=== PATIENT | male | born 1935 | race Hispanic/Latino ===

== ENCOUNTER 2018-07-07 09:48 | Emergency (ER) | payer MEDICARE | END 2018-07-07 12:09 | disposition home or self-care (01) | LOC: EDH 09:48 | DX: S63.592A Other specified sprain of left wrist, initial encounter (principal); E11.9 Type 2 diabetes mellitus without complications; X50.0XXA Overexertion from strenuous movement or load, initial encounter; Y93.89 Activity, other specified; Y92.89 Other specified places as the place of occurrence of the external cause; Y99.8 Other external cause status | CPT/HCPCS: 29125; 73110 ==

== ENCOUNTER → 2019-10-31 | Outpatient (CLI) | payer MEDICARE | END | disposition home or self-care (01) | LOC: SHCH 13:04 | PROVIDERS: ATTEND Internal Medicine Cardiovascular Disease | DX: I35.0 Nonrheumatic aortic (valve) stenosis (principal) | CPT/HCPCS: 93306 ==

== ENCOUNTER → 2021-06-24 | Outpatient (CLI) | payer OTHER, MEDICARE | END | disposition home or self-care (01) | LOC: SHCH 09:57 | PROVIDERS: ATTEND Internal Medicine Cardiovascular Disease | DX: I87.2 Venous insufficiency (chronic) (peripheral) (principal) | CPT/HCPCS: 93970 ==

== ENCOUNTER → 2023-09-13 | Outpatient (CLI) | payer OTHER, MEDICARE ==
[~2023-09-13] MED LIST: ASPI-1443 PO; ATOR40TA69 PO; DAPA10TA PO; DONE10TA43 PO; LOSA50TA64 PO; MEMA10TA21 PO; METF-446 PO; METO25TA6 PO; SEMA3TAB4 PO; TICA90TA PO
== END | disposition home or self-care (01) ==
LOC: SHCH 07:57
PROVIDERS: ATTEND Internal Medicine Cardiovascular Disease
DX: I35.0 Nonrheumatic aortic (valve) stenosis (principal)
CPT/HCPCS: 93306

== ENCOUNTER 2024-01-25 13:44 | Emergency (ER) | payer OTHER, MEDICARE ==
[~2024-01-25] VITALS: Ht 157.5 cm; Wt 56.7 kg
--- NOTE | 2024-01-25 13:50 | ERN ---
ED Note History of Present Illness Stated Complaint: FLU SYMPTOMS Chief Complaint: Flu Symptoms Time Seen by MD: 13:45 Dictation: PATIENT IS AN 88-YEAR-OLD MALE COMING IN TODAY WITH COMPLAINTS OF BODY ACHES, LOW-GRADE FEVER MILD SORE THROAT WITH CLEAR RUNNY NOSE AND DRY COUGH FOR TWO DAYS. NO NAUSEA VOMITING NO LOSS OF TASTE OR SMELL NO CHEST PAIN. PATIENT WAS SEEN BY HIS PRIMARY CARE DOCTOR YESTERDAY AND WAS JUST GIVEN REFILLS FOR HIS MEDICATIONS AND TOLD EVERYTHING WAS FINE. PATIENT WOULD LIKE A 2ND OPINION Allergies: Coded Allergies: No Known Drug Allergies (Unverified Allergy, Unknown, 07/07/18) Home Meds Active Scripts Azithromycin (Zithromax) 500 Mg Tablet, 1 TAB PO DAILY for 5 Days, #5 TAB 0 Refills Prov:JENNIFER JIMENEZ INFERTILITY MEDICAL ASSISTANT 01/25/24 Benzonatate (Tessalon Perles) 100 Mg Cap, 100 MG PO TID for cough, #30 CAP 0 Refills Prov:JENNIFER JIMENEZ INFERTILITY MEDICAL ASSISTANT 01/25/24 Reported Medications Metformin HCl (Metformin HCl) 1,000 Mg Tablet, 1000 MG PO BIDAC, TAB 12/22/22 Aspirin (Aspirin EC) 81 Mg Tablet.dr, 81 MG PO DAILY, TAB 12/22/22 Ticagrelor (Brilinta) 90 Mg Tablet, 90 MG PO BID, TAB 12/22/22 Atorvastatin Calcium (LIPITOR) 40 Mg Tablet, 40 MG PO HS, TAB 12/22/22 Losartan Potassium (Losartan Potassium) 50 Mg Tablet, 50 MG PO DAILY, TAB 12/22/22 Metoprolol Tartrate (Metoprolol Tartrate) 25 Mg Tablet, 25 MG PO BID, TAB 12/22/22 Memantine HCl (Memantine HCl) 10 Mg Tablet, 10 MG PO BID, TAB 12/22/22 Semaglutide (Rybelsus) 3 Mg Tablet, 3 MG PO ACBKFST, TAB 12/22/22 Dapagliflozin Propanediol (Farxiga) 10 Mg Tablet, 10 MG PO DAILY, TAB 12/22/22 Donepezil HCl (Donepezil HCl) 10 Mg Tablet, 10 MG PO DAILY, TAB 12/22/22 Past Medical History Past Medical History: Diabetes-Type II, High Cholesterol, Hypertension Surgical History: Unknown Surgical History Other: HEAD SURGERY RN Note Reviewed/Agreed w/PFSH: Yes Review of System Dictation CONSTITUTIONAL: NEGATIVE EXCEPT FOR HPI FEVER HEAD/FACE: NEGATIVE EXCEPT FOR HPI EENT: NEGATIVE EXCEPT FOR HPI CLEAR RUNNY RESPIRATORY: NEGATIVE EXCEPT FOR HPI NOSE MILD SORE THROAT DRY COUGH GASTROINTESTINAL/ABDOMINAL: NEGATIVE EXCEPT FOR HPI GENITOURINARY: NEGATIVE EXCEPT FOR HPI MUSCULOSKELETAL: NEGATIVE EXCEPT FOR HPI INTEGUMENTARY: NEGATIVE EXCEPT FOR HPI NEUROLOGICAL/PSYCH: NEGATIVE EXCEPT FOR HPI HEMATOLOGIC/LYMPHATIC: NEGATIVE EXCEPT FOR HPI ALL SYSTEMS NEGATIVE, EXCEPT NOTED ABOVE. 13 POINT REVIEW OF SYSTEMS ASSESSED AND ALL NEGATIVE EXCEPT FOR ABOVE. Initial Vital Sign VS Vital Signs Date Time Temp Pulse Resp B/P (MAP) Pulse Ox O2 Delivery O2 Flow Rate FiO2 01/25/24 13:46 99.3 121 20 133/90 96 Room Air 0 01/25/24 14:15 21 Physical Exam Dictation VITAL SIGNS REVIEWED GENERAL APPEARANCE: ALERT, ORIENTED X 3, MILD ACUTE DISTRESS, WELL DEVELOPED, NOURISHED. HEAD AND FACE: NON-TRAUMATIC. EYES: PERRL, PINK CONJUNCTIVAS, EYELID NO TRAUMA, ANTERIOR CHAMBER WITH ARCUS SENILIS. EARS: PINNAS INTACT AND NO SIGNS OF TRAUMA OR ERYTHEMA EAR CANALS CLEAR AND NO DISCHARGE TM NO ERYTHEMA NOSE: NO DISCHARGE, NO BLEEDING. OROPHARYNX: MOUTH NORMAL, TONGUE PINK, PHARYNX CLEAR, MILD PHARYNGEAL ERYTHEMA, TONSILS NO EXUDATES, NO ABSCESSES NOTED, MUCOUS MEMBRANE MOIST NECK: SUPPLE, NON-TENDER, NO THYROMEGALY, NO MASSES, NO JVD, NO BRUITS BREAST:DEFERRED CHEST:NO TENDERNESS, NO CREPITUS, NO PARADOXICAL MOVEMENT, NO RETRACTIONS LUNGS:CLEAR, WELL-VENTILATED, SYMMETRIC, NO RALES, NO WHEEZING, NO RHONCHI, NO STRIDOR, GOOD BREATH SOUNDS BILATERALLY HEART: REGULAR RATE, REGULAR RHYTHM, NO MURMUR, NO GALLOPS VASCULAR: NO PERIPHERAL EDEMA, ABDOMEN: SOFT, POSITIVE BOWEL SOUNDS, NONDISTENDED, NO GUARDING, NONTENDER, NO REBOUND, NO MASSES NO HEPATOMEGALY, NO SPLENOMEGALY, NO DUFFY'S SIGN, NO HERNIAS. RECTAL: DEFERRED GENITAL: DEFERRED NEUROLOGICAL: NORMAL SPEECH, MOTOR FUNCTION INTACT, SENSORY FUNCTION INTACT MUSCULOSKELETAL: NECK NONTENDER, FULL RANGE OF MOTION, BACK NONTENDER, FULL RANGE OF MOTION, EXTREMITIES: NONTENDER, FULL RANGE OF MOTION SKIN: COLOR PINK, DRY, NO TURGOR, NO RASH, NO LACERATIONS, NO ABRASIONS, NO CONTUSIONS. LYMPHATIC: DEFERRED Results (Laboratory/Radiology) Laboratory/Radiology Laboratory Tests Test 01/25/24 13:55 Influenza Type A Antigen Negative For Type A Influenza Type B Antigen Negative For Type B SARS-CoV-2 Antigen (Rapid) PRESUMPTIVE NEGATIVE Group A Streptococcus Rapid negative (NEGATIVE) FIFTEEN 15, CHEST X-RAY NEGATIVE Labs Reviewed?: Yes ED Course ED Course Orders Procedure Category Date Status Time Covid19 (Sars Antigen LAB 01/25/24 Complete Rapid) 13:45 Influenza Type A & B, LAB 01/25/24 Complete Rapid 13:45 Rapid (Group A Strep) LAB 01/25/24 Complete 13:45 Chest 1vw RAD 01/25/24 Resulted 13:45 Acetaminophen 500mg PHA 01/25/24 Complete Tab (Tylenol 500mg T 14:00 Current Medications Medications (Trade) Dose Ordered Sig/Nicholas Route PRN Reason Start Time Stop Time Status Last Admin Dose Admin Acetaminophen (TYLenol 500MG TAB) 1,000 mg ONCE ONCE PO 01/25/24 14:00 01/25/24 14:01 DC 01/25/24 14:15 Vital Signs Date Time Temp Pulse Resp B/P (MAP) Pulse Ox O2 Delivery O2 Flow Rate FiO2 01/25/24 15:40 99.3 78 20 143/89 98 Room Air* 0 21 01/25/24 14:15 99.9 84 20 135/62 96 Room Air* 0 21 01/25/24 14:15 99.9 01/25/24 13:46 99.3 121 20 133/90 96 Room Air 0 Medical Decision Making [facility] MEDICAL DISCHARGE MAKING BASED ON SWABS FOR FLU COVID AND STREP AND CHEST X-RAY. CHEST X-RAY NEGATIVE SWABS NEGATIVE PATIENT DIAGNOSED WITH URI WITH COUGH SYMPTOMS WE WILL BE TREATED DX & DISP Disposition: Discharge Departure Impression: Primary Impression: Viral URI with cough Condition: Stable Scripts Azithromycin (Zithromax) 500 Mg Tablet 1 TAB PO DAILY for 5 Days, #5 TAB 0 Refills Prov: JENNIFER JIMENEZ INFERTILITY MEDICAL ASSISTANT 01/25/24 Benzonatate (Tessalon Perles) 100 Mg Cap 100 MG PO TID for cough, #30 CAP 0 Refills Prov: JENNIFER JIMENEZ INFERTILITY MEDICAL ASSISTANT 01/25/24 Additional Instructions: FOLLOW-UP WITH PRIMARY CARE PROVIDER IN 1 TO 2 DAYS. TAKE MEDICATIONS DIRECTED HERE IN THE EMERGENCY ROOM. OKAY TO CONTINUE HOME MEDICATIONS UNLESS OTHERWISE DISCUSSED DURING YOUR VISIT IN THE EMERGENCY ROOM TODAY. RETURN TO YOUR NEAREST EMERGENCY ROOM IF SYMPTOMS WORSEN OR IF THERE IS NO IMPROVEMENT. CALL 911 IF YOU NEED IMMEDIATE ASSISTANCE. TAKE TYLENOL OR MOTRIN [id number] NEEDED AND IF NO CONTRAINDICATIONS ARE PRESENT. INCREASE ORAL HYDRATION. A WOUND CULTURE OR URINE CULTURE WAS ORDERED HERE IN THE EMERGENCY ROOM DEPARTMENT PLEASE FOLLOW-UP WITH PRIMARY CARE PROVIDER AND ADVISE THEM TO GET REPEAT PORTS FROM OUR FACILITY. IF YOU HAD ANY LATESHA WRAP/SPLINTS T HAT WERE APPLIED HERE, PLEASE DO NOT REMOVE THEM UNTIL YOU SEE YOUR PRIMARY CARE OR SPECIALTY. TAKE TESSALON DIRECTED FOR COUGH, INCREASE YOUR WATER INTAKE. , SEE YOUR PRIMARY CARE DOCTOR FOR FOLLOW UP. Referrals: RANDY BAKER MD (PCP) Time of Disposition: 15:16 I have reviewed the case, and I agree with, Diagnosis and Plan JENNIFER JIMENEZ NP Jan 25, 2024 13:50 LETY TELLO DO Jan 25, 2024 18:39
[2024-01-25] MEDS: acetaMINOPHEN 500 MG TABLET PO ONE (14:15)
[2024-01-25 14:29] LABS: RAPID GROUP A STREP negative (NEGATIVE)
[2024-01-25 14:39] LABS: COVID19 (SARS ANTIGEN RAPID) PRESUMPTIVE NEGATIVE (NEGATIVE); INFLUENZA TYPE A Negative For Type A (NEGATIVE); INFLUENZA TYPE B Negative For Type B (NEGATIVE)
[2024-01-25] MEDS ORDERED: BENZ-39 PO (15:17)
--- NOTE | 2024-01-25 15:34 | HMCIMG ---
CHEST 1VW REASON: SOB COMPARISON: 12/25/2022 FINDINGS: Single view of the chest was obtained. Lungs are clear. Heart size is normal. There is no pulmonary vascular congestion. Mediastinum and bony thorax appear unremarkable. IMPRESSION: 1. Normal single view chest x-ray.
[2024-01-25 15:35] VITALS: TEMP 99.9
[2024-01-25] MEDS ORDERED: AZIT500T PO (15:38)
[2024-01-25 15:40] VITALS: BP 143/89; PULSE 78; RESP 20; TEMP 99.4; O2SAT 98
--- NOTE | 2024-01-28 11:15 | EKG ---
[facility] Test Date: 2024-01-25 Test Time: 13:53:50 Pat Name: SOCORRO PEMBERTON Department: ED Room: Gender: M Convention Manager: [id number] : 1935 Requested By: LETY TELLO Order Number: [id number] Reading MD: Ignacio Banks Measurements Intervals [place] Rate: 107 P: 76 MD: 172 QRS: 32 QRSD: 82 T: 67 QT: 352 QTc: 470 Interpretive Statements Sinus tachycardia Low voltage, extremity leads Compared to ECG 12/21/2022 20:07:01 Low QRS voltage now present Sinus rhythm no longer present ST (T wave) deviation no longer present Electronically Signed On 01-28-2024 20:58:01 DIP UNIT OPERATOR by Ignacio Banks Please click the below link to view image of tracing.
== END 2024-01-25 16:01 | disposition home or self-care (01) ==
LOC: EDH 13:44
DX: J06.9 Acute upper respiratory infection, unspecified (principal); B97.89 Other viral agents as the cause of diseases classified elsewhere; E11.9 Type 2 diabetes mellitus without complications; E78.00 Pure hypercholesterolemia, unspecified; I10 Essential (primary) hypertension; Z20.822 Contact with and (suspected) exposure to COVID-19; Z79.02 Long term (current) use of antithrombotics/antiplatelets; Z79.82 Long term (current) use of aspirin; Z79.84 Long term (current) use of oral hypoglycemic drugs; Z79.899 Other long term (current) drug therapy
CPT/HCPCS: 71045; 87426; 87804; 87880; 93005; 99284; 99285

== ENCOUNTER 2024-11-14 05:32 | Emergency (ER) | payer OTHER, MEDICAID ==
[~2024-11-14] VITALS: Ht 167.6 cm; Wt 59.0 kg
[~2024-11-14 05:32] MED LIST changes: -DAPA10TA PO; -LOSA50TA64 PO; +SITA25TA5 PO
--- NOTE | 2024-11-14 05:59 | ERN ---
General Chief Complaint: Hypoglycemia Stated Complaint: UNRESPONSIVE AT CORRECTION Time Seen by MD: 05:37 Source: EMS History of Present Illness Initial Comments 89-year-old male with a dementia and diabetes at a [facility] was found to have a decreased mental status and was brought to the emergency room. Sequence of events prior to arrival to the ED: Patient's blood glucose was noted to be 250 at the [facility] and he was given 6 units of regular insulin. He had not eaten dinner. Later the patient was found to be unresponsive in his bed. And production hardener were called. At 5:00 a.m., just prior to the production hardener arriving patient's blood glucose was normal. Once the production hardener arrived and measured his blood glucose it was 27. Patient received glucose in transit and on arrival here his glucose is 70 and the patient is more alert and awake. He knows his name he knows he was in the ambulance. When we asked about pain he stated that he is having chest pain. Timing/Duration: 4-6 hours Allergies: Coded Allergies: No Known Drug Allergies (Unverified Allergy, Unknown, 07/07/18) Home Meds Reported Medications Ticagrelor (Brilinta) 90 Mg Tablet, 1 TAB PO BID for 30 Days, #60 TAB 0 Refills 10/24/24 Sitagliptin Phosphate (Januvia) 25 Mg Tablet, 1 TAB PO DAILY 10/24/24 Metformin HCl (Metformin HCl) 1,000 Mg Tablet, 1000 MG PO BIDAC, TAB 12/22/22 Aspirin (Aspirin EC) 81 Mg Tablet.dr, 81 MG PO DAILY, TAB 12/22/22 Atorvastatin Calcium (LIPITOR) 40 Mg Tablet, 40 MG PO HS, TAB 12/22/22 Metoprolol Tartrate (Metoprolol Tartrate) 25 Mg Tablet, 25 MG PO BID, TAB 12/22/22 Memantine HCl (Memantine HCl) 10 Mg Tablet, 10 MG PO BID, TAB 12/22/22 Semaglutide (Rybelsus) 3 Mg Tablet, 3 MG PO ACBKFST, TAB 12/22/22 Donepezil HCl (Donepezil HCl) 10 Mg Tablet, 10 MG PO DAILY, TAB 12/22/22 Past Medical History Past Medical History: Hypertension, Other Medical History Other: DEMENTIA Past Surgical History: None Surgical History Other: HEAD STENTS ROS Dictation Unable to obtain a good review of systems given patient's dementia. Physical Exam General Appearance: (+) no apparent distress Orientation: (+) alert Head/Face Trauma: No Eye: bilateral eye normal inspection, bilateral eye PERRL, bilateral eye EOMI Ear, Nose, Throat: (+) hearing grossly normal, (+) normal ENT inspection, (+) moist mucous membraine Neck: (+) normal inspection, (+) supple, (+) full range of motion Respiratory: (+) chest non-tender, (+) lungs clear, (+) well ventilated Heart: (+) regular, (+) no gallop Vascular: (+) no edema, (+) normal peripheral pulse Gastrointestinal: (+) soft, (+) non-tender, (+) bowel sound present Results Laboratory and Microbiology Lab and Micro Result Laboratory Tests Test 11/14/24 05:41 11/14/24 05:45 Whole Blood Glucose 78 MG/DL (70-110) White Blood Count 7.8 K/uL (4.8-10.8) Red Blood Count 3.26 MIL/uL (4.50-6.20) L Hemoglobin 8.7 g/dL (14.0-18.0) L Hematocrit 27.2 % (42-54) L Mean Corpuscular Volume 83.4 fL (79-99) Mean Corpuscular Hemoglobin 26.7 pg (27.0-33.0) L Mean Corpuscular Hemoglobin Concent 32.0 g/dL (32.0-36.0) Red Cell Distribution Width 16.0 % (11.0-15.5) H Platelet Count 385 K/uL (130-400) Mean Platelet Volume 11.0 fL (7.5-10.5) H Immature Granulocyte % (Auto) 0.9 % (0-1) Neutrophils (%) (Auto) 86.1 % (40.0-77.0) H Lymphocytes (%) (Auto) 6.4 % (21.0-51.0) L Monocytes (%) (Auto) 5.9 % (3.0-13.0) Eosinophils (%) (Auto) 0.3 % (0.0-8.0) Basophils (%) (Auto) 0.4 % (0.0-5.0) Neutrophils # (Auto) 6.8 K/uL (1.8-7.7) Lymphocytes # (Auto) 0.5 K/uL (1.0-4.8) L Monocytes # (Auto) 0.5 K/uL (0.1-1.0) Eosinophils # (Auto) 0.02 K/uL (0.00-0.70) Basophils # (Auto) 0.03 K/uL (0.00-0.20) Absolute Immature Granulocyte (auto 0.07 K/uL (0-1) Nucleated Red Blood Cells 0.3 % (0.0-0.19) H White Cell Morphology Comment CONSISTENT W/DIFF Sodium Level 147 mmol/L (136-145) H Potassium Level 2.7 mmol/L (3.5-5.1) *L Chloride Level 111 mmol/L (101-111) Carbon Dioxide Level 27 mmol/L (21-32) Blood Urea Nitrogen 18 mg/dL (7-18) Creatinine 1.2 mg/dL (0.5-1.3) Glomerular Filtration Rate Calc 58 mL/min (>90) Random Glucose 145 mg/dL (70-105) H Total Calcium 7.8 mg/dL (8.5-10.1) L Troponin I High Sensitivity 71 ng/L (4-75) MDM MDM: Differential diagnosis: Hypoglycemia, infection, insulin overdose, Rationale: Tests considered and ordered secondary to shared decision making include: Previous outside records reviewed: Old ER visits. Risk of complication and/or morbidity or mortality of patient management: None Medications-Per medication reconciliation Need for hospitalization: Patient does meet criteria for hospitalization. Need for emergency major/minor surgery: No There are no social concerns with this patient. Prescription drug management Prescriptions will include symptomatic care Patient's prior external medical records from other ER visits were reviewed by me as indicated. Prior testing and results from previous visits were reviewed. Prior tests were taken into account with medical decision making and resource utilization, independent historian/historians were used to obtain complete medical history. I independently interpreted the test that were performed, results were reviewed by me and considered findings on radiology if ordered. Patient's laboratory analysis shows a normal white blood cell count with moderate anemia. Chemistry panel shows possible dehydration with sodium of 147 and a chloride of 112. Patient's potassium was low at 2.7 I am giving him 50 mEq of potassium bicarb. Patient's glucose was high, but not enough for insulin dosing. Patient's troponin is negative patient's EKG shows no ischemic changes. There were nonspecific T-wave abnormalities in the lateral leads but these were also present on prior EKGs. Patient's daughter is here and would like to take the patient to her house; however, I think patient is oxygen needs and physical therapy needs preclude the patient from being discharged to his daughter's. We will watch the patient here for another hour to make sure his glucose is stable and discharge him back to the nursing facility. We are also giving him some fruit juice to drink. ED Course Orders Procedure Category Date Status Time 12 Lead Ekg Tracing- EKG 11/14/24 Complete Technical 05:49 Troponin I High LAB 11/14/24 Complete Sensitivity 05:49 Basic Metabolic Panel LAB 11/14/24 Complete 05:49 Cbc With Differential LAB 11/14/24 Complete 05:49 D5w-1/2 Ns/20meq Kcl PHA 11/14/24 In Process (D5w-1/2 Ns/20meq K 06:30 Potassium Bicarb/Cit PHA 11/14/24 Complete Ac 25meq (K-Lyte Ta 06:30 Current Medications Medications (Trade) Dose Ordered Sig/Nicholas Route PRN Reason Start Time Stop Time Status Last Admin Dose Admin Potassium Bicarbonate (K-Lyte Tablet Eff 25 Meq Tablet.eff) 50 meq ONCE ONCE PO 11/14/24 06:30 11/14/24 06:31 DC 11/14/24 06:26 Potassium Chloride/Dextrose/ Sod Cl 1,000 ml @ 200 mls/hr Q5H IV 11/14/24 06:30 11/14/24 11:29 11/14/24 06:14 Vital Signs Date Time Temp Pulse Resp B/P (MAP) Pulse Ox O2 Delivery O2 Flow Rate FiO2 11/14/24 06:42 84 11 134/65 97 Nasal Cannula* 2 28 11/14/24 05:48 97.5 83 14 121/63 97 Nasal Cannula* 2 28 11/14/24 05:34 96.8 97 20 118/60 99 Room Air 0 DX & DISP Disposition: Discharge Departure Impression: Primary Impression: Hypoglycemia Additional Impressions: Dementia, Hypokalemia Condition: Stable Additional Instructions: You came to us with a low blood glucose and we have given you sugar and fluids to correct this. You had concerns about chest pain but your EKG was normal and your troponins were normal. We will discharge you back to your facility with plans to discharge you to your daughter's house in the near future. Referrals: RANDY BAKER MD (PCP) GUDELIA COHEN MD Nov 14, 2024 05:59
[2024-11-14 06:00] LABS: IMMATURE GRANULOCYTE ABSOLUTE 0.07 K/uL (0-1); NUCLEATED RED BLOOD CELLS 0.3 % (0.0-0.19); PLATELET COUNT (AUTO) 385 K/uL (130-400); RED BLOOD CELL COUNT(AUTO) 3.26 MIL/uL (4.50-6.20); RED CELL DISTRIBUTION WIDTH 16.0 % (11.0-15.5); WHITE BLOOD COUNT (AUTO) 7.8 K/uL (4.8-10.8)
[2024-11-14 06:09] LABS: CREATININE 1.2 mg/dL (0.5-1.3); GLOMERULAR FILTR. RATE CALC 58.0 mL/min (>90); GLUCOSE,RANDOM 145.0 mg/dL (70-105); SODIUM SERUM 147.0 mmol/L (136-145); UREA NITROGEN, BLOOD 18.0 mg/dL (7-18)
[2024-11-14 06:13] LABS: WBC MORPHOLOGY CONSISTENT W/DIFF
[2024-11-14] MEDS: D5W-1/2 NS/20MEQ KCL 1,000 ML IV SCH (06:14)
--- NOTE | 2024-11-14 06:49 | EKG ---
[facility] Test Date: 2024-11-14 Test Time: 05:54:19 Pat Name: SOCORRO PEMBERTON Department: ED Room: Gender: M Bar Manager: [facility] : 1935 Requested By: GUDELIA COHEN Order Number: [id number] Reading MD: Bennie Maher Measurements Intervals [place] Rate: 82 P: 50 [place]: 172 QRS: -17 QRSD: 95 T: 170 QT: 440 QTc: Interpretive Statements Sinus rhythm Probable left atrial enlargement Inferior infarct, old Nonspecific T abnormalities, anterolateral leads Electronically Signed On 11-14-2024 10:57:32 CDT by Bennie Maher Please click the below link to view image of tracing.
--- NOTE | 2024-11-14 07:00 | NUR ---
REPORT GIVEN TO LILLY SCOTT AT THIS TIME
--- NOTE | 2024-11-14 07:10 | NUR ---
PT IS ALERT AND ORIENTED AT THIS TIME WITH A BLOOD GLUCOSE OF 88
--- NOTE | 2024-11-14 12:05 | NUR ---
REPORT GIVEN TO [facility] NURSE FRANCINE THEY WILL BE SENDING A SHUTTLE
[2024-11-14 12:42] VITALS: BP 93/53; PULSE 97; RESP 18; TEMP 98.4; O2SAT 100
--- NOTE | 2024-11-14 12:50 | NUR ---
PT BEING TRANSPORTED BY [facility].
== END 2024-11-14 12:59 ==
LOC: EDH 05:32
DX: E11.649 Type 2 diabetes mellitus with hypoglycemia without coma (principal); F03.90 Unspecified dementia, unspecified severity, without behavioral disturbance, psychotic disturbance, mood disturbance, and anxiety; E87.6 Hypokalemia; I10 Essential (primary) hypertension; Z79.82 Long term (current) use of aspirin; Z79.84 Long term (current) use of oral hypoglycemic drugs; Z79.899 Other long term (current) drug therapy
CPT/HCPCS: 99285; 96374; 84484; 80048; 85025; 82948 ×3; 36415; 93005; J3480; 99284